=== PATIENT | female | born 1975 | race Two or more races ===

== ENCOUNTER 2019-02-17 11:48 | Emergency (ER) | payer MEDICAID, OTHER ==
[~2019-02-17] VITALS: Ht 157.5 cm; Wt 87.1 kg
[2019-02-17 14:24] VITALS: BP 142/65
== END 2019-02-17 15:41 | disposition home or self-care (01) ==
LOC: ER 11:53
DX: L03.116 Cellulitis of left lower limb (principal); Z98.51 Tubal ligation status